=== PATIENT | male | born 1995 | race Caucasian/White ===

== ENCOUNTER 2017-10-24 16:21 | Emergency (ER) | payer MEDICAID ==
[2017-10-24 16:21] VITALS: BMI 24.0
[2017-10-24 16:47] VITALS: BP 121/77; PULSE 69; RESP 16; TEMP 98.3; O2SAT 100
--- NOTE | 2017-10-24 17:53 | ED PDOC ---
HPI: Skin/Bite Injury Time Seen by Provider: 10/24/17 16:47 Chief Complaint (Nursing): GI Problem Chief Complaint (Provider): skin abscess History Per: Patient History/Exam Limitations: no limitations Onset/Duration Of Symptoms: Persistent (x1 month) Current Symptoms Are (Timing): Still Present Additional Complaint(s): 22 year old male with medical history of asthma and hypercholesterolemia, presents to the emergency department with a complaint of swelling to tailbone which has gradually decreased in size but continually expresses foul pus ongoing for 1 month. Patient has not been evaluated prior to ED visit. He denies any fever or chills. PMD: none provided Past Medical History Reviewed: Historical Data, Nursing Documentation, Vital Signs Vital Signs: Last Vital Signs Temp 98.3 F 10/24/17 16:44 Pulse 69 10/24/17 16:44 Resp 16 10/24/17 16:44 BP 121/77 10/24/17 16:44 Pulse Ox 100 10/24/17 18:03 - Medical History PMH: Asthma, Hypercholesterolemia - Surgical History Surgical History: Appendectomy - Family History Family History: States: Unknown Family Hx - Social History Current smoker - smoking cessation education provided: No Alcohol: None Drugs: Denies - Immunization History Hx Tetanus Toxoid Vaccination: No Hx Influenza Vaccination: No Hx Pneumococcal Vaccination: No - Home Medications Home Medications: Ambulatory Orders Medication Instructions Recorded Albuterol Sulfate [Ventolin Hfa] 11/05/14 Focalin 12/20/14 Loratadine 12/20/14 Ibuprofen [Motrin] 600 mg PO TID PRN #30 tab 12/21/14 Sulfamethoxazole/Trimethoprim 2 tab PO BID #28 tab 10/24/17 [Bactrim DS 800 mg-160 mg] - Allergies Allergies/Adverse Reactions: Allergies Allergy/AdvReac Type Severity Reaction Status Date / Time Penicillins Allergy RASH Verified 10/24/17 16:43 seasonal Allergy Mild SHORTNESS Uncoded 10/24/17 16:43 OF BREATH Review of Systems ROS Statement: Except As Marked, All Systems Reviewed And Found Negative Constitutional: Negative for: Fever, Chills Gastrointestinal: Positive for: Rectal Pain (swelling to tailbone with continual foul pus discharge) Physical Exam - Reviewed Nursing Documentation Reviewed: Yes (pilonidal area has a small pinpoint open wound with small amount of yellow discharge noted) Vital Signs Reviewed: Yes - Physical Exam Appears: Positive for: No Acute Distress Skin: Positive for: Normal Color. Negative for: Rash Rectal: Positive for: Other (pilonidal area has a small pinpoint open wound with small amount of yellow discharge noted). Negative for: Tenderness (or surrounding erythema, swelling or induration to pilonidal area) Neurologic/Psych: Positive for: Alert (x3), Oriented. Negative for: Motor/ Sensory Deficits - ECG O2 Sat by Pulse Oximetry: 100 (RA) Pulse Ox Interpretation: Normal Medical Decision Making Medical Decision Making: Initial Impression: Pilonidal disease Initial Plan: * Wound culture Time: 1748 --Upon provider re-evaluation, patient is medically stable and requires no further treatment in the ED at this time. Patient will be discharged home with Rx for Bactrim DS. Counseling was provided and all questions were answered regarding diagnosis and need for follow up with [facility] for evaluation of possible surgery. There is agreement to discharge plan. Return immediately if fever, swelling or redness persist or worsen. Clinical Impression: Pilonidal disease Scribe Attestation: Documented by Regina Ko, acting as a scribe for Clayton Emmanuel PA-C. Provider Scribe Attestation: All medical record entries made by the Scribe were at my direction and personally dictated by me. I have reviewed the chart and agree that the record accurately reflects my personal performance of the history, physical exam, medical decision making, and the department course for this patient. I have also personally directed, reviewed, and agree with the discharge instructions and disposition Disposition - Clinical Impression Clinical Impression: Pilonidal disease - Patient ED Disposition Is Patient to be Admitted: No Counseled Patient/Family Regarding: Studies Performed, Diagnosis, Need For Followup - Disposition Referrals: [facility] [Outside] [facility] [Outside] Disposition: Routine/Home Disposition Time: 17:48 Condition: STABLE Additional Instructions: Follow up with [facility] for further evaluation. Return to ED immediately if symptoms worsen. Prescriptions: Sulfamethoxazole/Trimethoprim [Bactrim DS 800 mg-160 mg] 2 tab PO BID #28 tab Instructions: Wound Care (DC) Forms: [employer] (Maori) Print Language: ROMANIAN
== END 2017-10-24 18:24 | disposition home or self-care (01) ==
LOC: H.ER 16:21
DX: L05.01 Pilonidal cyst with abscess (principal); J45.909 Unspecified asthma, uncomplicated; Z88.0 Allergy status to penicillin; E78.00 Pure hypercholesterolemia, unspecified